=== PATIENT | female | born 1965 | race African-American/Black ===

== ENCOUNTER 2024-06-20 06:38 | Emergency (ER) | payer OTHER ==
[~2024-06-20] VITALS: Ht 167.6 cm; Wt 113.6 kg
[2024-06-20 06:48] VITALS: BP 205/103; PULSE 98; RESP 19; TEMP 98.5; O2SAT 96
[2024-06-20] MEDS ORDERED: HYDR25TA2 PO ×2 (06:57→07:15)
[2024-06-20] MEDS ORDERED: CLON0.1T2 PO ×3 (06:57→07:30)
[2024-06-20] MEDS ORDERED: METF-1211 PO ×2 (06:57→07:15)
[2024-06-20] MEDS ORDERED: VALS160T2 PO ×2 (06:57→07:15)
[2024-06-20] MEDS ORDERED: VALSARTAN 80 MG TABLET PO ONE (07:15)
[2024-06-20] MEDS: CloNIDine HCL 0.1 MG TABLET PO ONE (07:19)
[2024-06-20] MEDS: HYDROCHLOROTHIAZIDE 25 MG TABLET PO ONE (07:19)
[2024-06-20] MEDS: VALSARTAN 160 MG TABLET PO ONE (07:23)
== END 2024-06-20 07:24 | disposition home or self-care (01) ==
LOC: EMS 06:41
DX: I10 Essential (primary) hypertension (principal); E11.9 Type 2 diabetes mellitus without complications; Z76.0 Encounter for issue of repeat prescription; Z88.0 Allergy status to penicillin; Z79.899 Other long term (current) drug therapy; Z79.84 Long term (current) use of oral hypoglycemic drugs
CPT/HCPCS: 99284; Z7502; Z7610